=== PATIENT | male | born 1990 | race Caucasian/White ===

== ENCOUNTER 2022-04-21 13:26 | Outpatient (CLI) | payer OTHER, SELFPAY ==
--- NOTE | 2022-04-21 13:57 | XR_ITS ---
WS: [id number] XR wrist LT min 3V* [id number] REASON FOR EXAM: board hit left wrist at work FINDINGS: No acute fracture identified. Joint spaces of the left wrist are intact and well preserved. No radiopaque foreign body is identified. XR/XR wrist LT min 3V* [id number] IMPRESSION: No significant abnormality.
== END 2022-04-21 13:27 | disposition home or self-care (01) ==
PROVIDERS: Visit Provider Emergency Medicine
DX: M25.532 Pain in left wrist (principal)
CPT/HCPCS: 73110